=== PATIENT | male | born 1955 | race Caucasian/White ===

== ENCOUNTER 2017-10-28 12:30 | Day surgery (SDC) | payer OTHER ==
[2017-10-28] MEDS ORDERED: PROPOFOL 10 MG/ML VIAL IV ONE (12:31)
[2017-10-28] MEDS ORDERED: LIDOCAINE 2% MDV (20MG/ML) 20ML VIAL IV ONE (12:31)
[2017-10-28 13:36] LABS: INR 1.1; PROTHROMBIN TIME (PATIENT) 11.8 SECONDS (9.5-12.1)
--- NOTE | 2017-10-29 12:50 | Operative Note ---
DATE OF SURGERY: 10/28/2017 OPERATION: COLONOSCOPY to the cecum with electrocautery snare polypectomy and cold snare polypectomy. INDICATION: History of adenomatous polyps in the past noted by my previous associate in 2011. The patient returns at this time for surveillance. ANESTHESIA: Intravenous sedation was administered by the department of anesthesiology and included Diprivan titrated to effect. PROCEDURE: Following informed consent from this alert individual including a discussion of the risks and benefits of the procedure and an opportunity for the patient to ask questions, the patient was in the left lateral decubitus position. A digital rectal examination was performed. No abnormalities were noted. Following this, the Olympus [id number] video colonoscope was inserted into the rectum without resistance. The rectal mucosa had a normal appearance with normal folds and distensibility. The colonoscope was advanced up through the colon to the level of the cecum without much difficulty. Throughout the bowel the mucosa appeared normal, the folds were normal, and the bowel was fairly well distensible. Scattered diverticula were noted throughout the right and left colon, more so on the left. The cecum was defined by noting the appendiceal orifice and ileocecal valve. From the base of the cecum, the colonoscope was then slowly withdrawn. In the proximal transverse colon, there was a sessile polyp noted along a fold measuring approximately 8-9 mm in size. It was removed in piecemeal fashion with electrocautery snare with a white eschar noted and no bleeding. There was a second polyp noted in the sigmoid colon measuring 4 mm in size and this was removed with cold snare polypectomy. The colon preparation overall was good. Again diverticulosis was noted throughout the bowel but predominantly in the left colon (sigmoid region). The colonoscope was then withdrawn back into the rectum where retroflexion accomplished following air insufflation failed to demonstrate any additional changes. The endoscope was straightened and removed. The patient tolerated the procedure well and was returned to the recovery area in stable condition. IMPRESSION: 1. An 8-9 mm sessile polyp along the fold in the proximal transverse colon removed with electrocautery snare in piecemeal fashion. 2. A 4 mm sigmoid polyp removed with cold snare polypectomy. 3. Tran diverticulosis. RECOMMENDATIONS: The patient was advised he should receive a copy of his pathology report at home in the next 2-3 weeks. If not, he was asked to call my office to review the results of testing today. Further recommendations forthcoming pending those results. Followup will also be with Dr. Lovett at [facility] and [facility]. Post-procedure instructions were given to the patient in oral and written form. As always, thank you for allowing me to participate in the care of your patient. CC: Dr. Bony Peralta, [facility] CENTERGregoria
== END 2017-10-28 15:15 | disposition home or self-care (01) ==
LOC: HOP 12:30
PROVIDERS: ATTEND Internal Medicine Gastroenterology
DX: Z12.11 Encounter for screening for malignant neoplasm of colon (principal); Z86.010 Personal history of colon polyps; D12.3 Benign neoplasm of transverse colon; K63.5 Polyp of colon; Z79.01 Long term (current) use of anticoagulants; F41.8 Other specified anxiety disorders
CPT/HCPCS: 85610

== ENCOUNTER 2018-12-01 09:22 | Day surgery (SDC) | payer BC ==
[2018-12-01] MEDS ORDERED: LIDOCAINE 2% MDV (20MG/ML) 20ML VIAL IV ONE (09:23)
[2018-12-01] MEDS ORDERED: FENTANYL PF 100MCG/2ML VIAL IV ONE (09:23)
[2018-12-01] MEDS ORDERED: PROPOFOL 10 MG/ML VIAL IV ONE (09:23)
[2018-12-01 10:02] LABS: INR 1.1; PROTHROMBIN TIME (PATIENT) 11.3 SECONDS (9.5-12.1)
--- NOTE | 2018-12-02 09:00 | Operative Note ---
DATE OF SURGERY: 12/01/2018 OPERATION: ESOPHAGOGASTRODUODENOSCOPY. INDICATION: Recently discovered gastric antral ulcerations during the hospitalization in [place]. The patient apparently had evidence of bleeding. He returns at this time for recheck endoscopy to confirm ulcer healing. Clinically, he has had no signs of bleeding. ANESTHESIA: Intravenous sedation was administered by the department of anesthesiology and included Diprivan titrated to effect. PROCEDURE: Following informed consent from this alert individual, including a discussion of the risks and benefits of the procedure and an opportunity for the patient to ask questions, the patient was in the left lateral decubitus position. The Olympus [id number] video endoscope was inserted into the esophagus without resistance. The posterior pharynx was visualized prior to intubating the esophagus and appeared to be normal. The esophagus throughout its entirety including the GE junction was also endoscopically normal. The stomach was then entered. The gastric fundus and pars media had a normal appearance with normal folds and distensibility. The antrum evaluated circumferentially was free from any mucosal changes. The previously noted ulcerations had healed. Pylorus was patent. Duodenal bulb was cannulated and demonstrated some very mild duodenitis. At the duodenum sweep, there was a fairly large duodenal diverticulum noted. No other changes were appreciated. The descending duodenum was normal. The endoscope was then drawn back into the stomach where retroflexion accomplished following air insufflation failed to demonstrate any changes. The endoscope was straightened and withdrawn. The patient tolerated the procedure well and was returned to the recovery area in stable condition. IMPRESSION: 1. Healed antral gastric ulcerations as noted above. 2. Very mild duodenitis. 3. Duodenal diverticulum. RECOMMENDATION: The patient will continue on acid blockade therapy. He will resume his Coumadin therapy as well. Followup will be with Dr. Granado. As always, thank you for allowing me to participate in the care of your patient. CC: MD RABIA Osman
== END 2018-12-01 11:58 | disposition home or self-care (01) ==
LOC: HOP 09:22
PROVIDERS: ATTEND Internal Medicine Gastroenterology
DX: K25.9 Gastric ulcer, unspecified as acute or chronic, without hemorrhage or perforation (principal); K29.80 Duodenitis without bleeding; K57.10 Diverticulosis of small intestine without perforation or abscess without bleeding; I74.9 Embolism and thrombosis of unspecified artery
CPT/HCPCS: 43235; 00731; 85610; J3010